=== PATIENT | female | born 1950 | race Caucasian/White ===

== ENCOUNTER 2018-09-10 02:35 | Outpatient (CLI) | END 2018-09-10 02:59 | disposition short-term general hospital (02) | LOC: AMBL 02:35 | PROVIDERS: ATTEND Internal Medicine Geriatric Medicine | DX: R40.20 Unspecified coma (principal); R29.810 Facial weakness; S00.81XA Abrasion of other part of head, initial encounter; S01.81XA Laceration without foreign body of other part of head, initial encounter; S00.83XA Contusion of other part of head, initial encounter; S40.022A Contusion of left upper arm, initial encounter; S40.021A Contusion of right upper arm, initial encounter; S80.12XA Contusion of left lower leg, initial encounter; S80.11XA Contusion of right lower leg, initial encounter; M79.89 Other specified soft tissue disorders; W19.XXXA Unspecified fall, initial encounter ==